=== PATIENT | female | born 2000 | race Caucasian/White ===

== ENCOUNTER 2020-10-04 23:17 | Emergency (ER) | payer MEDICAID ==
[~2020-10-04] VITALS: Ht 157.5 cm; Wt 76.0 kg
[2020-10-04 23:28] VITALS: BP 119/75
[2020-10-04] MEDS ORDERED: DOXYCYCLINE 100MG CAPSULE PO STA (23:56)
[2020-10-04] MEDS ORDERED: DOXY100C43 PO (23:58)
== END 2020-10-05 00:10 | disposition home or self-care (01) ==
LOC: ER 23:18
DX: L02.415 Cutaneous abscess of right lower limb (principal); L03.115 Cellulitis of right lower limb; Z79.899 Other long term (current) drug therapy
CPT/HCPCS: 76882; 99284